=== PATIENT | female | born 1970 | race American Indian/Alaskan Native ===

== ENCOUNTER 2016-06-18 13:50 | Outpatient (CLI) | payer MEDICARE ==
[2016-06-18 14:04] LABS: Basophils % (Auto) 1.9 % (0.0-1.8); Hematocrit 20.7 % (30.3-42.9); Hemoglobin 6.8 gm/dl (10.1-14.3); Mean Corpuscular HGB Conc 33 % (30-34); Mean Corpuscular Hemoglobin 31 pg (28-32); Mean Corpuscular Volume 95 fl (79-97); Platelet Count 309 K/mm3 (140-440); Red Blood Count 2.19 M/mm3 (3.65-5.03); Red Cell Distribution Width 18.3 % (13.2-15.2); White Blood Count 7.9 K/mm3 (4.5-11.0)
== END 2016-06-18 13:51 | disposition home or self-care (01) ==
LOC: LAB 13:50
PROVIDERS: ATTEND Internal Medicine Nephrology
DX: N18.6 End stage renal disease (principal); D64.89 Other specified anemias
CPT/HCPCS: 36415; 85025

== ENCOUNTER 2016-08-06 14:35 | Outpatient (CLI) | payer MEDICARE ==
[2016-08-06 15:14] LABS: Basophils % (Auto) 0.6 % (0.0-1.8); Eosinophils % (Auto) 1.7 % (0.0-4.3); Mean Corpuscular HGB Conc 32 % (30-34); Mean Corpuscular Hemoglobin 32 pg (28-32); Mean Corpuscular Volume 99 fl (79-97); Platelet Count 252 K/mm3 (140-440); Red Cell Distribution Width 18.1 % (13.2-15.2); White Blood Count 10.4 K/mm3 (4.5-11.0)
[2016-08-06 15:30] LABS: Hematocrit 16.8 % (30.3-42.9); Hemoglobin 5.5 gm/dl (10.1-14.3)
== END 2016-08-06 14:36 | disposition home or self-care (01) ==
LOC: LAB 14:35
PROVIDERS: ATTEND Internal Medicine Nephrology
DX: D64.9 Anemia, unspecified (principal)
CPT/HCPCS: 36415; 85025; 85652

== ENCOUNTER 2016-08-14 13:45 | Outpatient (CLI) | payer MEDICARE ==
[2016-08-14 13:55] LABS: Basophils % (Auto) 0.5 % (0.0-1.8); Eosinophils % (Auto) 1.4 % (0.0-4.3); Mean Corpuscular HGB Conc 34 % (30-34); Mean Corpuscular Hemoglobin 32 pg (28-32); Mean Corpuscular Volume 95 fl (79-97); Platelet Count 236 K/mm3 (140-440); Red Blood Count 1.79 M/mm3 (3.65-5.03); Red Cell Distribution Width 18.8 % (13.2-15.2); White Blood Count 8.8 K/mm3 (4.5-11.0)
[2016-08-14 14:00] LABS: Hemoglobin 5.8 gm/dl (10.1-14.3)
== END 2016-08-14 13:46 | disposition home or self-care (01) ==
LOC: LAB 13:45
PROVIDERS: ATTEND Internal Medicine Nephrology
DX: D64.9 Anemia, unspecified (principal)
CPT/HCPCS: 36415; 85025

== ENCOUNTER 2016-09-07 13:40 | Outpatient (CLI) | payer MEDICARE ==
[2016-09-07 13:51] LABS: Basophils % (Auto) 0.4 % (0.0-1.8); Eosinophils % (Auto) 1.8 % (0.0-4.3); Hemoglobin 6.5 gm/dl (10.1-14.3); Mean Corpuscular HGB Conc 32 % (30-34); Mean Corpuscular Hemoglobin 32 pg (28-32); Mean Corpuscular Volume 97 fl (79-97); Platelet Count 200 K/mm3 (140-440); Red Blood Count 2.05 M/mm3 (3.65-5.03); White Blood Count 7.7 K/mm3 (4.5-11.0)
[2016-09-07 13:56] LABS: Red Cell Distribution Width 21.7 % (13.2-15.2)
== END 2016-09-07 13:41 | disposition home or self-care (01) ==
LOC: LAB 13:40
PROVIDERS: ATTEND Internal Medicine Nephrology
DX: D64.89 Other specified anemias (principal); D63.8 Anemia in other chronic diseases classified elsewhere
CPT/HCPCS: 36415; 85025

== ENCOUNTER 2016-09-18 13:44 | Outpatient (CLI) | payer MEDICARE ==
[2016-09-18 13:59] LABS: Basophils % (Auto) 0.5 % (0.0-1.8); Eosinophils % (Auto) 1.5 % (0.0-4.3); Hematocrit 20.2 % (30.3-42.9); Hemoglobin 6.5 gm/dl (10.1-14.3); Mean Corpuscular HGB Conc 32 % (30-34); Mean Corpuscular Hemoglobin 30 pg (28-32); Mean Corpuscular Volume 94 fl (79-97); Platelet Count 225 K/mm3 (140-440); Red Blood Count 2.15 M/mm3 (3.65-5.03); Red Cell Distribution Width 15.9 % (13.2-15.2); White Blood Count 5.7 K/mm3 (4.5-11.0)
== END 2016-09-18 13:45 | disposition home or self-care (01) ==
LOC: LAB 13:44
PROVIDERS: ATTEND Internal Medicine Nephrology
DX: K92.2 Gastrointestinal hemorrhage, unspecified (principal); D63.8 Anemia in other chronic diseases classified elsewhere
CPT/HCPCS: 36415; 85025